=== PATIENT | male | born 1955 | race African-American/Black ===

== ENCOUNTER 2020-02-29 03:57 | Emergency (ER) | payer OTHER ==
[~2020-02-29] VITALS: Ht 177.8 cm; Wt 72.6 kg
[2020-02-29 04:00] VITALS: BP 110/74
[2020-02-29] MEDS ORDERED: LISINOPRIL2.5 MG PO (04:10)
[2020-02-29] MEDS ORDERED: GLIPIZIDE5 MG PO (04:11)
[2020-02-29] MEDS ORDERED: LIPITOR10 MG PO (04:12)
== END 2020-02-29 04:48 | disposition home or self-care (01) ==
LOC: ER 03:57
DX: F22 Delusional disorders (principal); E11.9 Type 2 diabetes mellitus without complications; Z79.899 Other long term (current) drug therapy; Z98.890 Other specified postprocedural states

== ENCOUNTER 2020-10-06 04:56 | Emergency (ER) | payer BC ==
[~2020-10-06] VITALS: Ht 177.8 cm; Wt 72.6 kg
[~2020-10-06 04:56] MED LIST: GLIPIZIDE5 MG PO; LIPITOR10 MG PO; LISINOPRIL2.5 MG PO
[2020-10-06 05:51] VITALS: BP 122/86
== END 2020-10-06 05:51 | disposition home or self-care (01) ==
LOC: ER 04:56
DX: F22 Delusional disorders (principal); L53.9 Erythematous condition, unspecified; E11.9 Type 2 diabetes mellitus without complications; Z98.890 Other specified postprocedural states; Z79.899 Other long term (current) drug therapy

== ENCOUNTER 2021-09-18 19:05 | Inpatient (IN) | payer BC ==
[~2021-09-18] VITALS: Ht 180.3 cm; Wt 65.8 kg
[2021-09-18 19:10] VITALS: BP 136/87
[2021-09-18 20:24] LABS: BE(vivo) -1.1 mmol/L (-2 to +3); PCO2 28.1 mmHg (35.0-45.0); pH 7.491 (7.360-7.450); sO2 73.2 % (92.0-98.0)
[2021-09-18 20:25] LABS: HEMATOCRIT 39.9 % (42.0-52.0); HEMOGLOBIN 13.6 gm/dL (14.0-18.0); MCH 30.9 pg (26.0-34.0); MCHC 34.2 g/dL (28.0-37.0); MCV 90.5 fL (80.0-100.0); PLATELET COUNT 390 thou/uL (150-400); RBC 4.41 mil/uL (4.50-6.00); RDW 12.1 % (10.5-14.5); WBC 16.4 thou/uL (4.0-11.0)
[2021-09-18 20:26] LABS: PO2 34.9 mmHg (80.0-100.0)
[2021-09-18 21:06] LABS: URINE BILIRUBIN NEGATIVE (Negative); URINE BLOOD NEGATIVE (Negative); URINE CLARITY CLEAR; URINE GLUCOSE-RANDOM* 3+ (Negative); URINE KETONES 3+ (Negative); URINE LEUKOCYTES-REFLEX NEGATIVE (Negative); URINE NITRITE-REFLEX NEGATIVE (Negative); URINE PROTEIN (DIPSTICK) TRACE (Negative)
[2021-09-18 21:17] LABS: URINE COLOR YELLOWF
[2021-09-18 21:25] LABS: ALBUMIN 2.4 g/dL (3.4-5.0); CALCIUM 8.8 mg/dL (8.5-10.1); CREATININE 0.9 mg/dL (0.7-1.3); MAGNESIUM 1.8 mg/dL (1.8-2.4); TOTAL BILIRUBIN 0.8 mg/dL (0.2-1.0); TOTAL PROTEIN 7.9 g/dL (6.4-8.2)
[2021-09-18 21:30] LABS: POTASSIUM 5.4 mmol/L (3.5-5.1)
[2021-09-18 21:40] LABS: AMP/METHAMP Negative (Negative); BARBITURATES Negative (Negative); BENZODIAZEPINES Negative (Negative); COCAINE Negative (Negative); METHADONE Negative (Negative); OPIATES Negative (Negative); PCP Negative (Negative)
[2021-09-18 22:16] LABS: ABSOLUTE NEUTROPHILS 13.1 thou/uL (1.4-8.2)
[2021-09-18 22:40] VITALS: BP 136/88
[2021-09-18 23:30] VITALS: BP 136/81
[2021-09-19 02:27] LABS: HEMATOCRIT 35.7 % (42.0-52.0); HEMOGLOBIN 12.2 gm/dL (14.0-18.0); MCH 30.8 pg (26.0-34.0); MCV 90.5 fL (80.0-100.0); RBC 3.95 mil/uL (4.50-6.00); RDW 12.2 % (10.5-14.5); WBC 16.5 thou/uL (4.0-11.0)
[2021-09-19 02:35] LABS: CREATININE 0.8 mg/dL (0.7-1.3); POTASSIUM 4.5 mmol/L (3.5-5.1)
[2021-09-19 02:39] LABS: ALBUMIN 2.2 g/dL (3.4-5.0); PHOSPHORUS 3.2 mg/dL (2.6-4.7)
[2021-09-19 02:42] LABS: ALBUMIN 2.2 g/dL (3.4-5.0); CALCIUM 8.1 mg/dL (8.5-10.1); CREATININE 0.9 mg/dL (0.7-1.3); TOTAL BILIRUBIN 0.6 mg/dL (0.2-1.0); TOTAL PROTEIN 7.1 g/dL (6.4-8.2)
[2021-09-19 02:47] LABS: POTASSIUM 4.3 mmol/L (3.5-5.1)
[2021-09-19 03:53] LABS: BE(vivo) 1.3 mmol/L (-2 to +3); HCO3 24.8 mmol/L (22.0-26.0); PCO2 35.5 mmHg (35.0-45.0); PO2 62.6 mmHg (80.0-100.0); pH 7.462 (7.360-7.450); sO2 93.3 % (92.0-98.0)
[2021-09-19 04:25] VITALS: BP 128/75
--- NOTE | 2021-09-19 07:14 | EKG ---
[address] [address] ELECTROCARDIOGRAM REPORT Name: SORAYA DEAN Room #: 361-P ADM IN M.R.#: [id number] Admission: 09/18/21 Attend Phys: George Juarez MD Discharge: Date of : 59 Report #: [id number] [facility] ED Test Date: 2021-09-18 Test Time: 20:29:06 Pat Name: SORYAA DEAN Department: Room: 361 Gender: M Animal Care Technician: shannen : 1955 Requested By: Rod Ramírez Order Number: [id number] MD: Allan Elizalde Measurements Intervals Convoy Rate: 97 P: 15 WV: 154 QRS: 52 QRSD: 74 T: 25 QT: 350 QTc: 445 Interpretive Statements Sinus rhythm No previous ECG available for comparison Electronically Signed On 09-19-2021 7:14:36 [employer] by Allan Elizalde [email or web address] <ELECTRONICALLY SIGNED> By: Allan Elizalde MD, [facility] 09/19/21713 28 28 Allan Elizalde MD, FACC /EPI
[2021-09-19 08:05] VITALS: BP 133/83
--- NOTE | 2021-09-19 09:09 | NUR ---
PT ADMITTED TO 3W FROM ER FROM HOME. STATED HE HAD BEEN HOME FOR SEVERAL DAYS WITH POOR APPETITE AND COVID SYMPTOMS. HE WAS NOT TAKING HIS INSULIN, WAS LETHARGIC AND DROWSY. BG FOUND TO BE ELEVATED IN ER. PT ADMITTED FOR COVID+, SEPSIS AND PNEUMONIA. HE WAS ADMIITED TO 3W FROM ER ON 6LNC. HE HAS SINCE THEN OVERNIGHT BEEN TITRATED TO 90% FIO2 ON OPTIFLOW WITH 45LF. ABGS CALLED TO [facility]. PULMONARY AND ID CONSULTS PENDING. BG HAS BEEN TREATED AND HAS COME DOWN INTO 200s. PT BECAME AGITATED AND RESTLESS AND HAS PULLED OUT IV, URINATED ALL OVER BED AND FLOOR, AND PULLED OFF OPTIFLOW AT LEAST 4 TIMES. [facility] NOTIFIED. BARKSDALE PLACED AND SOFT WRIST RESTRAINTS APPLIED. NO PAIN MEDS OR ANTI ANXIETY MEDS GIVEN DUE TO RESPIRATORY STATUS. WAITING FOR CT OF HEAD TO BE DONE THIS AM. PT ON ISOLATION FOR COVID+ AND CONTACT FOR RECENT TX OF SCABIES ACCORDING TO PT'S . LR INFUSING AT 126 AND IV ABX STARTED ORDERED. SR ON MONITOR. CAREPLAN INITIATED. SPOKE WITH PT'S 3 X TONIGHT AND EXPLAINED POC. SHE IS NOT AWARE OF ALL OF HIS MEDICATIONS OR PMHX. UNABLE TO COMPLETE MED RECONCILIATION COMPLETELY.
[2021-09-19 10:46] LABS: BE(vivo) -2.7 mmol/L (-2 to +3); HCO3 20.6 mmol/L (22.0-26.0); PCO2 30.9 mmHg (35.0-45.0); pH 7.441 (7.360-7.450); sO2 90.1 % (92.0-98.0)
[2021-09-19 10:47] LABS: PO2 54.9 mmHg (80.0-100.0)
[2021-09-19 11:23] VITALS: BP 133/88
[2021-09-19 15:05] VITALS: BP 125/82
[2021-09-19 19:49] VITALS: BP 118/57
[2021-09-20 04:13] VITALS: BP 126/82
[2021-09-20 07:39] VITALS: BP 129/82
[2021-09-20 08:52] LABS: HEMATOCRIT 30.3 % (42.0-52.0); HEMOGLOBIN 10.3 gm/dL (14.0-18.0); MCH 30.7 pg (26.0-34.0); MCHC 33.9 g/dL (28.0-37.0); MCV 90.6 fL (80.0-100.0); PLATELET COUNT 312 thou/uL (150-400); RBC 3.35 mil/uL (4.50-6.00); RDW 12.1 % (10.5-14.5); WBC 17.2 thou/uL (4.0-11.0)
[2021-09-20 09:18] LABS: ALBUMIN 1.8 g/dL (3.4-5.0); CALCIUM 7.8 mg/dL (8.5-10.1); CREATININE 0.8 mg/dL (0.7-1.3); DIRECT BILIRUBIN 0.2 mg/dL (<0.1-0.2); PHOSPHORUS 2.7 mg/dL (2.5-4.9); POTASSIUM 4.2 mmol/L (3.5-5.1); TOTAL BILIRUBIN 0.6 mg/dL (0.2-1.0); TOTAL PROTEIN 5.9 g/dL (6.4-8.2)
[2021-09-20 09:20] LABS: D-DIMER 11.63 ug/mLFEU (0.19-0.50); INR 1.14; PROTIME 12.4 Seconds (10.5-12.1)
[2021-09-20 11:29] VITALS: BP 112/70
[2021-09-20 12:48] LABS: ABSOLUTE NEUTROPHILS 15.5 thou/uL (1.4-8.2); ANISOCYTOSIS SLIGHT; ATYPICAL LYMPHS 1 %
[2021-09-20 12:49] LABS: POIKILOCYTOSIS SLIGHT
[2021-09-20 15:16] VITALS: BP 105/66
--- NOTE | 2021-09-20 18:50 | NUR ---
RN ASSUMED PT'S CARE AT 0700AM, PT IS A&OX4 , PT IS ON OPTIFLOW O2 100%, 60L /MIN WITH MASK O2 1OL/MIN TO KEEP PT'S O2SAT AT 91-95%,RN HAS NOTIFIED HOSPITAL DR AND DR FULLER ABOUT PT REFUSED BIPAP , RN HAS NOTIFIED PT'S FAMILY ABOUT PT'S REFUSIN , PT'S CODE STATUS HAS CHANGED TO FULL CODE ,BUT NO INTUTRBATION , RN WILL REPORT TO NEXT SHIFT TO KEEP EYE ONPT.
[2021-09-20 19:31] VITALS: BP 153/87
[2021-09-20 23:25] VITALS: BP 134/90
--- NOTE | 2021-09-20 23:48 | HC ---
[facility] [place] [address] CONSULTATION Name: SORAYA DEAN Room #: 361- ADM IN M.R.#: [id number] Admission: 09/18/21 Attend Phys: Song Andrea MD Discharge: Date of : 59 Report #: [id number] THIS REPORT FOR: cc: Blake Anglin Sr, MD, Otis S Sr MD Geha, Daniel J. MD ~ DATE OF SERVICE: 09/19/2021 INFECTIOUS DISEASE CONSULTATION REASON FOR CONSULTATION: I was asked to evaluate concerning COVID-19 pneumonia. HISTORY OF PRESENT ILLNESS: The patient is a 66-year-old diabetic who presents with altered mental status and hyperglycemia. Presented through the Emergency Room. He has been encephalopathic. Lethargy started the day of admission. He was unable to give much history. When he presented, he was on 6 liters of oxygen per nasal cannula. Subsequently, he has been placed on high flow oxygen up to 100%. He remains awake, but difficult to converse with. He could not give me a specific timeframe of his illness. He was stating that it has been over a year. He was alert, but again confused. REVIEW OF SYSTEMS: As noted from nursing staff and previous records, noting no chest pain, no hemoptysis. No nausea, vomiting or diarrhea. He has been incontinent of urine. ALLERGIES: None known. MEDICATIONS: As noted on his MAR, which were reviewed. Reportedly, on lisinopril, glipizide, and atorvastatin prior to his admission. PAST MEDICAL HISTORY: Diabetes. He has had a patellar surgery on both knees. He has sciatica, chronic pain syndrome, vertigo, delusional, parasitosis. FAMILY HISTORY: Not available. SOCIAL HISTORY: Unclear if he has been a smoker, any significant alcohol or drug use. PHYSICAL EXAMINATION: GENERAL: He was afebrile and hemodynamically stable. He was alert and cooperative. SKIN: Without rash or decubitus. No palpable adenopathy. He was very thin. HEENT: Eyes without scleral icterus. Mouth without mucositis. NECK: Supple with no thyromegaly or mass. LUNGS: Few posterior crackles, without consolidation. HEART: Regular, without murmur. [facility] [address] [place] [address] CONSULTATION Name: SORAYA DEAN Room #: 361-[facility] IN ..#: [id number] Admission: 09/18/21 Attend Phys: Song Andrea MD Discharge: Date of : 59 Report #: [id number] ABDOMEN: Soft and nontender with no hepatosplenomegaly or mass. EXTREMITIES: He had no peripheral edema. NEUROLOGIC: Cranial nerves were intact and he was able to move all extremities, symmetrically. Mood calm without evidence of anxiety. Confusion. LABORATORY DATA: Reviewed. MICROBIOLOGY: Reviewed. IMAGING: Chest x-ray reviewed. IMPRESSION: 1. A 66-year-old diabetic, presents with acute toxic metabolic encephalopathy, uncontrolled diabetes, COVID-19 pneumonia with respiratory failure and severe acute respiratory syndrome. 2. Chronic back pain. 3. History of paranoia. 4. Delusional parasitosis. RECOMMENDATION: We will continue with anti-inflammatory medication including steroids and IL-6 inhibitor, remdesivir and antibiotics, pending culture results. Serial laboratory studies. Monitor blood glucose. The patient will be considered for transfer to intensive care unit for closer monitoring as the patient is on high flow oxygen and has altered mental status. <ELECTRONICALLY SIGNED> By: Johnathon Stearns MD 09/20/21 [id number] Johnathon Stearns MD /nt
[2021-09-21 04:22] VITALS: BP 135/88
--- NOTE | 2021-09-21 04:36 | NUR ---
PT MAKING POOR PROGRESS TOWARDS GOALS. ON OPTIFLO AT 60L AND 100% FIO2 AND NON-REBREATHER MASK. LUNGS DIMINISHED IN BOTH UPPER LOBES AND COARSE IN BOTH LOWER LOBES. RT ATTEMPTED TO PLACE BIPAP LAST NIGHT PT WAS INITIALLY WILLING TO WEAR. UNFORTUNATELY PT REMOVED THE MASK, POSSIBLLY WHILE ASLEEP JUST 25 MINUTES LATER AND THEN REFUSED TO PUT IT BACK ON. OPTIFLO WAS RESUMED AT THAT MOMENT. AT REST AND WHILE AWAKE PT O2 SAT 89-93%. DOES DESAT TO MID 80'S WITH MINIMAL MOVEMENT. DID NOTICE THAT PT O2 SAT DROPPED FROM 90% TO 80% WITHIN A MINUTE OF CONVERSATION. PT WAS WITNESSED "PANTING", MOUTH BREATHING AFTER THAT. HE DENIED THAT HE FELT SOA DESPITE THE MANNER OF HIS BREATHING. DISCUSSED USE OF BIPAP WITH PT THIS AM WHEN HE WAS FOUND WITH HIS OPTIFLO OFF, AND TRYING TO GET SOMETHING TO DRINK. STAFF REPORTED THAT HIS O2 SAT WAS 78% AND HE ONLY HAD THE NON-REBREATHER MASK IN PLACE. REPLACED OPTIFLO CANNULA AND WITHIN 4-5 MINUTES O2 SAT WAS BETWEEN 86-88%. AFTER THAT PROCEEDED WITH THE DISCUSSION OF USING BIPAP. DISCUSSED POSSIBLE USE OF MEDICATION TO HELP PT TO BE ABLE TO RELAX WHILE WEARING THE BIPAP MASK BUT PT REFUSED. REMINDED PT THAT HE HAD PREVIOUSLY CHOSEN TO BE A FULL CODE BUT NO INTUBATION WHEN PT STATED "I DON'T UNDERSTAND WHY YOU WANT ME TO WEAR THAT MASK." DESPITE INFORMING PT OF THE ASSISTANCE A BIPAP MASK WOULD GIVE HE STILL REFUSED ANY MEDICATION AND TO WEAR IT. "MAYBE AFTER BREAKFAST." PT A&0 X4. ACCURATE ANSWERS GIVEN ON NAME, DATE, LOCATION AND THAT HE IS HERE DX WITH COVID PNA. PT WHILE AT REST HAD O2 SATS 87-89% UPON LEAVING THE ROOM.
[2021-09-21 05:13] LABS: HEMATOCRIT 32.1 % (42.0-52.0); HEMOGLOBIN 10.9 gm/dL (14.0-18.0); MCH 30.6 pg (26.0-34.0); MCHC 33.9 g/dL (28.0-37.0); MCV 90.3 fL (80.0-100.0); PLATELET COUNT 362 thou/uL (150-400); RBC 3.55 mil/uL (4.50-6.00); RDW 12.3 % (10.5-14.5); WBC 19.7 thou/uL (4.0-11.0)
[2021-09-21 05:16] LABS: ALBUMIN 1.9 g/dL (3.4-5.0); CREATININE 0.8 mg/dL (0.7-1.3); DIRECT BILIRUBIN 0.2 mg/dL (<0.1-0.2); PHOSPHORUS 2.5 mg/dL (2.5-4.9); POTASSIUM 3.4 mmol/L (3.5-5.1); TOTAL BILIRUBIN 0.6 mg/dL (0.2-1.0); TOTAL PROTEIN 5.9 g/dL (6.4-8.2)
[2021-09-21 07:34] VITALS: BP 118/73
[2021-09-21 08:09] LABS: ABSOLUTE NEUTROPHILS 17.3 thou/uL (1.4-8.2); ANISOCYTOSIS SLIGHT; MYELOCYTES 2 %
[2021-09-21 08:10] LABS: POIKILOCYTOSIS SLIGHT
[2021-09-21 11:35] VITALS: BP 133/89
--- NOTE | 2021-09-21 15:26 | NUR ---
INITIAL ASSESSMENT: Received consult for discharge planning. SW reviewed chart and spoke with nursing and attending physician. Pt was admitted from home due to COVID pneumonia. Pt placed in Enhanced Isolation. Pt has not received a COVID vaccination. Pt is afebrile and on optiflow. Pt is on IV meds and Remdesivir. SW spoke briefly with pt via phone. Introduced role of SW. Pt is alert/orientated x 4. Pt reports he lives at home with his family. Prior to admission, pt was independent with ADLs. No use of DME. Pt is employed. Pt's PCP is Dr. Blake Anglin. Therapy on hold due to O2 needs. SW is following to assist as needed with discharge planning.
--- NOTE | 2021-09-21 15:59 | NUR ---
assumed care of pt at 0700. pt alert and oriented, maintaining spo2 on NRB whiled maxed on optiflow. iv abx infusing per order. complains of foot pain - some relief with tylenol. no events on telemetry. no progress toward poc goals.
[2021-09-21 16:41] VITALS: BP 116/79
[2021-09-21 19:41] VITALS: BP 155/80
--- NOTE | 2021-09-22 02:14 | NUR ---
PT WITH OXYGEN VIA OPTIFLO AT 60L AND 100% FIO2. PT SUPPLEMENTING WITH NRB MASK (15L). FREQUENT LOW SPO2 ALARMS AT LESS THAN 85%. NOTED THAT PT DID NOT EAT ANY DINNER AND HAS APPEARED TIRED AND MUCH LESS INTERACTIVE THAN HE WAS THE PREVIOUS NIGHT. A&O X4 DESPITE APPEARING LIKE THIS. DID DISCUSS WITH PT THAT IT WAS THIS RN'S OBSERVATION THAT HE IS 'RUNNING OUT OF STRENGTH AND ENERGY TO BREATH. YOUR LESS ACTIVE THAN YOU WERE LAST NIGHT, YOU DIDN'T EAT DINNER AND YOU'VE HARDLY DRANK ANYTHING TONIGHT.' ENCOURAGED STRONGLY, TO LET STAFF PLACE PT ON BIPAP. PT THEN STATED "CAN YOU GIVE ME THAT SHOT YOU TALKED ABOUT LAST NIGHT?" IM OLANZAPINE NOT PRESENT ON THE NOV. ORDER OBTAINED FOR PO DOSE OF ZYPREXA RECEIVED FROM INSECT CONTROL AIDE. DOSE GIVEN AND BIPAP PLACED BY RT. O2 SATS INOCENTE TO 92-93% WITH FIO2 AT 100%. WILL CONTINUE TO MONITOR.
[2021-09-22 03:52] VITALS: BP 112/77
[2021-09-22 04:01] LABS: CALCIUM 7.9 mg/dL (8.5-10.1); CREATININE 0.7 mg/dL (0.7-1.3); DIRECT BILIRUBIN 0.2 mg/dL (<0.1-0.2); PHOSPHORUS 2.8 mg/dL (2.5-4.9); POTASSIUM 3.9 mmol/L (3.5-5.1); TOTAL BILIRUBIN 0.6 mg/dL (0.2-1.0); TOTAL PROTEIN 5.6 g/dL (6.4-8.2)
[2021-09-22 07:43] VITALS: BP 131/78
[2021-09-22 11:26] VITALS: BP 111/68
--- NOTE | 2021-09-22 13:21 | NUR ---
SW reviewed chart and spoke with nursing and attending physician. Pt remains in Enhanced Isolation due to COVID. Pt is afebrile and on optiflow. Pt has been placed on bipap support. Pt is on IV meds and Remdesivir. Therapy on hold at this time. Per chart, pt has refused transfer to ICU. No weekend discharge planned. ABRAHAM is following to assist as needed with discharge planning.
[2021-09-22 16:04] VITALS: BP 136/84
--- NOTE | 2021-09-22 18:13 | NUR ---
PATIENT A/O X4. ON 60L/100% OPTIFLOW WHEN EATTING NOT TOLERATED WELL. ALSO ON 100% BIPAP. PATIENT DOES NOT WANT TARNSFERED TO ICU ON PRECEDEX GTT. PATIRNT IS NO INTUBATION CODE. NOT TOWARDS POC GOALS.
[2021-09-22 20:20] VITALS: BP 135/73
[2021-09-23 04:38] LABS: CALCIUM 8.2 mg/dL (8.5-10.1); CREATININE 0.7 mg/dL (0.7-1.3); DIRECT BILIRUBIN 0.2 mg/dL (<0.1-0.2); PHOSPHORUS 3.5 mg/dL (2.5-4.9); POTASSIUM 4.3 mmol/L (3.5-5.1); TOTAL BILIRUBIN 0.5 mg/dL (0.2-1.0); TOTAL PROTEIN 5.5 g/dL (6.4-8.2)
[2021-09-23 04:46] VITALS: BP 119/73
[2021-09-23 06:07] LABS: HIV ANTIBODY Non Reactive (Non Reactive)
[2021-09-23 07:54] VITALS: BP 116/69
[2021-09-23 11:38] VITALS: BP 112/70
[2021-09-23 15:00] VITALS: BP 108/64
[2021-09-23 19:24] VITALS: BP 95/50
--- NOTE | 2021-09-24 03:42 | NUR ---
continues on optiflo at 100 %, 60 liters. family member dropped off his computer and snacks. He needs encouraging to turn himself in the bed. he is able to turn and pull himself up with encouragement. denies pain. he has been relaxed and able to rest tonight. adequate urine output.
[2021-09-24 04:16] VITALS: BP 105/69
--- NOTE | 2021-09-24 05:06 | NUR ---
PY SITTING ON BSC, HE IS CONSTIPATEDAND FEELING VERY FULL. HE HAS NOT HAD MUCH TO EAT, BUT HAS NOT HAD A GOOD BM IN DAYS/ PER PT REPORT
[2021-09-24 05:54] LABS: CALCIUM 8.2 mg/dL (8.5-10.1); CREATININE 0.8 mg/dL (0.7-1.3); DIRECT BILIRUBIN 0.2 mg/dL (<0.1-0.2); PHOSPHORUS 3.1 mg/dL (2.5-4.9); POTASSIUM 3.9 mmol/L (3.5-5.1); TOTAL BILIRUBIN 0.5 mg/dL (0.2-1.0); TOTAL PROTEIN 5.8 g/dL (6.4-8.2)
[2021-09-24 07:22] VITALS: BP 104/70
[2021-09-24 11:29] VITALS: BP 94/57
--- NOTE | 2021-09-24 13:36 | NUR ---
PT HAS NOT BEEN MEDICALLY ABLE TO PARTICIIPATE IN OT EVAL. PLEASE REORDER OT WHEN PT HAS MEDICALLY IMPROVED AND CAN PARTICIPATE. D/C CURRENT OT ORDERS
[2021-09-24 15:20] LABS: T-SPOT.TB Negative
[2021-09-24 15:45] VITALS: BP 98/66
[2021-09-24 19:03] VITALS: BP 104/65
[2021-09-25 04:54] LABS: ALBUMIN 2.1 g/dL (3.4-5.0); CALCIUM 8.2 mg/dL (8.5-10.1); CREATININE 0.9 mg/dL (0.7-1.3); DIRECT BILIRUBIN 0.1 mg/dL (<0.1-0.2); PHOSPHORUS 3.8 mg/dL (2.5-4.9); POTASSIUM 4.2 mmol/L (3.5-5.1); TOTAL BILIRUBIN 0.3 mg/dL (0.2-1.0); TOTAL PROTEIN 5.7 g/dL (6.4-8.2)
--- NOTE | 2021-09-25 05:18 | NUR ---
Pt. has slept fair during the night with Optiflow 60L/100%. Occasionally takes off O2 then desat easily ,for the most part he kept it on. Cont. on enhanced precaution,afebrile.
[2021-09-25 08:18] VITALS: BP 125/68
[2021-09-25 11:58] VITALS: BP 106/73
[2021-09-25 15:34] VITALS: BP 113/58
--- NOTE | 2021-09-25 18:38 | NUR ---
PATIENT SUGAR WAS 404 TALKED TO DOCTOR SHYAM AND ALL SHE WANTED WAS SUGAR RECHECKED LATER WAS RECHECK. TALKED WITH PATIENTS FAMILY ABOUT BRING FOOD TO HIM, ALSO TALKED TO PATIENT ABOUT HAVING THE FOOD BROUGHT IN AND WITH HIS SUGAR HI MIGHT NOT BE ABLE TO EAT THE FOOD. PATIENT BARKSDALE WAS LEAKING AND BOLLOON WAS CHECK AND WAS FUSHED IN SOME, NO MORE LEAK NOTED. PATIENT IS RESTING IN BED WITH CALL ESPOSITO IN REACH.
[2021-09-25 20:28] VITALS: BP 123/86
[2021-09-26 04:00] VITALS: BP 102/67
--- NOTE | 2021-09-26 05:02 | NUR ---
PROGRESS PT A/O X4 BUT FORGETFUL REMOVES OPTIFLOW AT TIMES AND DESATS INTO THE 70'S. ADVISED PT TO NOT REMOVE O2 HE STATED HE WOULD TRY NOT TO. VSS. ACCUCHECK 449 AT [facility] NOTIFIED AND 20 UNITS SSI ADMINISTERED PER PROTOCOL. C/O PAIN TO PENIS STATES BARKSDALE CATHETER IS HURTING HIM, ORDER OBTAINED TO DC AND BARKSDALE CATH DC'D WITH STATED RELIEF. RF SALINE LOCK FLUSHES WITHOUT DIFFICULTY. SCD'S IN PLACE TELEMETRY INTACT READING SR/ST WITH RATES IN THE LOW 100'S. CONTINUE POC.
[2021-09-26 06:52] LABS: ALBUMIN 2.2 g/dL (3.4-5.0); CALCIUM 8.4 mg/dL (8.5-10.1); CREATININE 0.7 mg/dL (0.7-1.3); DIRECT BILIRUBIN 0.1 mg/dL (<0.1-0.2); PHOSPHORUS 4.4 mg/dL (2.5-4.9); POTASSIUM 3.6 mmol/L (3.5-5.1); TOTAL BILIRUBIN 0.4 mg/dL (0.2-1.0); TOTAL PROTEIN 5.9 g/dL (6.4-8.2)
[2021-09-26 07:40] VITALS: BP 88/60
--- NOTE | 2021-09-26 07:41 | NUR ---
ORDERS FOR EVAL AND TREAT BUT Pt HAS CONTINUED WITH HIGH O2 REQUIREMENTS AND HAS NOT BEEN APPROPRIATE FOR THERAPY FOR PAST WEEK. WILL PLACE ON HOLD AT THIS TIME AND AWAIT NEW ORDERS TO INITIATE THERAPY WHEN APPROPRIATE
[2021-09-26 11:34] VITALS: BP 125/70
--- NOTE | 2021-09-26 14:01 | NUR ---
SW reviewed chat and spoke with nursing and attending physician. Pt remains in Enhanced Isolation due to COVID. Pt is afebrile and requiring optiflow. Pt is on IV meds and Remdesivir. Pt's code status changed to Full Code. Pt now agreeable with intubation if needed, but does not want a trach/peg if unable to come off the vent. Therapy evals on hold at this time due to pt's O2 demands. ABRAHAM is following to assist as needed with discharge planning.
[2021-09-26 15:25] VITALS: BP 111/70
[2021-09-26 19:29] VITALS: BP 111/65
--- NOTE | 2021-09-26 19:51 | NUR ---
PT PROGRESSING ON PLAN OF CARE WITH IMPROVEMENT OF REPORTED RESPIRATORY SYMPTOMS, STILL REQUIRING OPTIFLOW. PT ABLE TO GET TO CHAIR TODAY WITH LESS SOB.
--- NOTE | 2021-09-26 23:49 | NUR ---
PT LEANING TO R SIDE IN SEMI FOWLERS POSITION IN BED. OPTI PATRICIO INTACT, CONTINUOUS PULSE OX INTACT. LUNGS WITH CRACKLES. PT TALKING ON PHONE LOUDLY. PT REQUESTING AND EATING SNACKS. PROVIDER NOTIFIED OF FSBS DUE TO PARAMETERS. BED ALARM ON. PT EXPRESSED BEING HAPPY THAT HIS BARKSDALE IS DISCONTINUED.
[2021-09-27 04:20] VITALS: BP 108/72
[2021-09-27 04:50] LABS: ALBUMIN 2.4 g/dL (3.4-5.0); ANION GAP 10 mmol/L (7-16); BUN 23 mg/dL (7-18); CALCIUM 8.5 mg/dL (8.5-10.1); CHLORIDE 101 mmol/L (98-107); CO2 27 mmol/L (21-32); CREATININE 0.6 mg/dL (0.7-1.3); DIRECT BILIRUBIN < 0.1 mg/dL (<0.1-0.2); GLUCOSE 261 mg/dL (74-106); PHOSPHORUS 3.8 mg/dL (2.5-4.9); POTASSIUM 3.7 mmol/L (3.5-5.1); SGOT 31 U/L (15-37); SGPT 84 U/L (30-65); SODIUM 138 mmol/L (136-145); TOTAL BILIRUBIN 0.3 mg/dL (0.2-1.0); TOTAL PROTEIN 6.1 g/dL (6.4-8.2)
[2021-09-27 05:09] LABS: HEMOGLOBIN 10.8 gm/dL (14.0-18.0)
[2021-09-27 05:12] LABS: HEMATOCRIT 31.7 % (42.0-52.0); MCH 30.9 pg (26.0-34.0); MCHC 33.9 g/dL (28.0-37.0); MCV 91.2 fL (80.0-100.0); PLATELET COUNT 283 thou/uL (150-400); RBC 3.48 mil/uL (4.50-6.00); RDW 13.1 % (10.5-14.5); WBC 27.2 thou/uL (4.0-11.0)
[2021-09-27 07:35] VITALS: BP 98/68
[2021-09-27 08:29] LABS: ABSOLUTE NEUTROPHILS 24.2 thou/uL (1.4-8.2)
[2021-09-27 11:20] VITALS: BP 110/73
[2021-09-27 15:29] VITALS: BP 127/72
--- NOTE | 2021-09-27 15:58 | NUR ---
SW reviewed chart and spoke with nursing and attending physician. Pt remains in Enhanced Isolation due to COVID. Pt is afebrile and requiring optiflow. Pt is IV meds and Remdesivir. Pt unable to work with therapy at this time due to O2 needs. ABRAHAM is following to assist as needed with discharge planning.
[2021-09-27] MEDS ORDERED: JANUMET 50-1,01 EACH PO (16:34)
[2021-09-27 19:06] VITALS: BP 101/64
[2021-09-28 03:42] VITALS: BP 100/62
--- NOTE | 2021-09-28 03:45 | NUR ---
ASSUMED PT CARE AT 1900. PT ALERT & ORIENTED X 4, IS CALM AND COOPERATIVE. CURRENTLY USING THE OPTIFLOW & IT IS SET AT 40L 60% FIO2. O2 SATS 94-99%. PT HAS SOB WITH EXERTION. PT IS VOIDING AT THE BEDSIDE USING URINAL AND IS HAVING ADEQUATE OUTPUT. VSS AFEBRILE. PT IS ABLE TO MAKE NEEDS KNOWN AND ALL NEEDS ARE MET AT THIS TIME. CONTINUE WITH PLAN OF CARE.
[2021-09-28 07:49] LABS: HEMATOCRIT 30.7 % (42.0-52.0); HEMOGLOBIN 10.4 gm/dL (14.0-18.0); MCH 31.2 pg (26.0-34.0); MCHC 33.7 g/dL (28.0-37.0); MCV 92.6 fL (80.0-100.0); RBC 3.32 mil/uL (4.50-6.00); RDW 13.3 % (10.5-14.5); WBC 21.5 thou/uL (4.0-11.0)
[2021-09-28 07:50] VITALS: BP 104/53
[2021-09-28 08:00] LABS: ALBUMIN 2.2 g/dL (3.4-5.0); ANION GAP 8 mmol/L (7-16); BUN 22 mg/dL (7-18); CALCIUM 8.2 mg/dL (8.5-10.1); CHLORIDE 103 mmol/L (98-107); CO2 28 mmol/L (21-32); CREATININE 0.7 mg/dL (0.7-1.3); DIRECT BILIRUBIN < 0.1 mg/dL (<0.1-0.2); GLUCOSE 215 mg/dL (74-106); PHOSPHORUS 3.6 mg/dL (2.5-4.9); POTASSIUM 3.7 mmol/L (3.5-5.1); SGOT 25 U/L (15-37); SGPT 63 U/L (30-65); SODIUM 139 mmol/L (136-145); TOTAL BILIRUBIN 0.3 mg/dL (0.2-1.0); TOTAL PROTEIN 5.6 g/dL (6.4-8.2)
[2021-09-28 11:36] VITALS: BP 94/54
--- NOTE | 2021-09-28 13:58 | NUR ---
SW reviewed chart and spoke with nursing and attending physician. Pt remains in Enhanced Isolation due to COVID. Pt is afebrile and on optiflow. Pt is on IV steroids and Remdesivir. PT eval completed today. SW spoke with pt via phone. Pt states he is feeling better today. SW discussed that SW will follow along and assist with discharge planning. Pt states his son at [facility] earlier this year and wanted to find out information regarding his son's . Pt also requesting medical records of his two prior ER visits on Oct 06, 2020 and February 29, 2020. Both ER visits were related to delusions of parasitosis. SW explained that he will need to sign a release of info and have form sent to Medical Records, in order to have his medical records provided to him. Pt does not know his son's to assist with verifying pt's son's . Pt states his son has the same name. ABRAHAM explained to pt that info regarding his son's may not be able to be released to him, if info is able to be retrieved. ABRAHAM to discuss with Director of Case Mgmt and Risk Mgmt. Pt appreciative for info. Plan is for pt to discharge home when medically stable. SW is following to assist as needed with discharge planning.
[2021-09-28 15:43] VITALS: BP 95/69
--- NOTE | 2021-09-28 19:29 | NUR ---
RN ASSUMED PT'S CARE AT 0700-1900PM, PT IS A&OX4, PT IS CONTINUING OPTIFLOW O2 50-60%, 40L/MIN, PT'S O2SAT STAY AY 92-96%, BUT PT STILL HAS SOB WITH ACTIVITIES, PT'S WEAKNESS HAS IMPROVED, PT GETS UP TO CHAIR WITH ASSIST, PT 'S VS ARE STABLE AT DAY SHIFT.
[2021-09-28 21:00] VITALS: BP 119/73
--- NOTE | 2021-09-29 03:31 | NUR ---
ASSUMED PT CARE AT 1900. PT ON OPTIFLOW 40L 60% FIO2. PT DESATS QUICKLY WITH EXERTION. PT HAD NO C/O OF PAIN, NAUSEA/VOMITTING. VSS AFEBRILE. PT IS SR/ST ON TELE MONITOR. PT IS ABLE TO MAKE NEEDS KNOWN. PT SLOWLY PROGRESSING TOWARDS POC GOALS. CONTINUE WITH PLAN OF CARE.
[2021-09-29 04:17] VITALS: BP 114/67
[2021-09-29 07:41] VITALS: BP 102/61
[2021-09-29 11:40] VITALS: BP 109/60
--- NOTE | 2021-09-29 12:17 | NUR ---
ABRAHAM reviewed chart and spoke with nursing and attending physician. Pt remains in Enhanced Isolation due to COVID. Pt is afebrile and on optiflow. Pt is on IV steroids. No weekend discharge planned. Therapy is ordered. ABRAHAM placed call to pt's room. No answer. ABRAHAM discussed with nursing that if pt would like to obtain medical records from his previous ER visits, he would need to go through Medical Records. Pt will need to sign a ESTELLA form and form to be faxed to medical records. Pt will also need to go through Medical Records for info regarding his son. Plan is for pt to discharge home when medically stable. ABRAHAM is following to assist as needed with discharge planning.
[2021-09-29 15:25] VITALS: BP 123/84
[2021-09-30 03:53] LABS: CALCIUM 8.6 mg/dL (8.5-10.1); CREATININE 0.9 mg/dL (0.7-1.3); POTASSIUM 4.2 mmol/L (3.5-5.1)
[2021-09-30 04:37] LABS: HEMATOCRIT 30.2 % (42.0-52.0); HEMOGLOBIN 10.1 gm/dL (14.0-18.0); MCH 31.7 pg (26.0-34.0); MCHC 33.4 g/dL (28.0-37.0); MCV 94.9 fL (80.0-100.0); RBC 3.19 mil/uL (4.50-6.00); WBC 25.5 thou/uL (4.0-11.0)
--- NOTE | 2021-09-30 04:42 | NUR ---
ASSUMED PT CARE AT 1900. PT ALERT & ORIENTED X 4. CURRENTLY ON OPTIFLOW 40L 60% FIO2. O2 SATS 93-95%. SR/ST ON TELE MONITOR. PT HAS NO C/O OF PAIN, NAUSEA/VOMITITNG. VSS AFEBRILE. PT IS ABLE TO MAKE NEEDS KNOWN. CONTINUE WITH PLAN OF CARE.
[2021-09-30 05:45] VITALS: BP 120/71
[2021-09-30 07:31] VITALS: BP 106/72
[2021-09-30 16:53] VITALS: BP 107/73
[2021-09-30 19:46] VITALS: BP 107/67
[2021-10-01 02:24] VITALS: BP 101/64
[2021-10-01 08:57] VITALS: BP 110/72
[2021-10-01 11:35] VITALS: BP 104/61
[2021-10-01 15:39] VITALS: BP 102/66
[2021-10-02 03:15] VITALS: BP 114/79
[2021-10-02 06:51] LABS: HEMATOCRIT 34.5 % (42.0-52.0); HEMOGLOBIN 11.4 gm/dL (14.0-18.0); MCH 32.1 pg (26.0-34.0); MCHC 33.1 g/dL (28.0-37.0); MCV 96.7 fL (80.0-100.0); RBC 3.57 mil/uL (4.50-6.00); RDW 14.7 % (10.5-14.5); WBC 36.5 thou/uL (4.0-11.0)
[2021-10-02 07:17] VITALS: BP 126/75
[2021-10-02 07:18] LABS: CALCIUM 8.8 mg/dL (8.5-10.1); POTASSIUM 3.8 mmol/L (3.5-5.1)
--- NOTE | 2021-10-02 07:53 | NUR ---
Pt. slept intermittently during the night.O2 at 6L then RT titrated up to 9L since O2 sat in the mid 80's. When pt. is at rest and relax his O2 sat is in the upper 90's. Cont. on enhanced precaution , afebrile. Voided per urinal with periods of bladder incontince. Up to commode at times.
[2021-10-02 12:19] LABS: URINE BILIRUBIN NEGATIVE (Negative); URINE BLOOD NEGATIVE (Negative); URINE CLARITY CLEAR; URINE COLOR YELLOW; URINE GLUCOSE-RANDOM* 3+ (Negative); URINE KETONES NEGATIVE (Negative); URINE LEUKOCYTES-REFLEX NEGATIVE (Negative); URINE NITRITE-REFLEX NEGATIVE (Negative); URINE PROTEIN (DIPSTICK) NEGATIVE (Negative); URINE SPECIFIC GRAVITY 1.025 (1.005-1.035); URINE UROBILINOGEN 0.2 E.U./dl (0.2-1.0)
[2021-10-02 15:25] VITALS: BP 115/72
[2021-10-02 19:27] VITALS: BP 138/65
--- NOTE | 2021-10-02 22:20 | NUR ---
PT LAYING IN BED. NC 10L, CONTINUOUS PULSE OX INTACT. PT LAYING IN BED, SLOUCHED TO THE RIGHT, GOWN NOT COVERING HIS GENITALS, PANTS AROUND ANKLES. PT ASSISTED TO REMOVE PANTS AROUND HIS ANKLES AND GOWN TO COVER HIS GENITALS. URINALS AT BEDSIDE. PT TALKING ON THE PHONE AND EATING SNACKS, COMPLIANT WITH MEDS. PT CALLS FOR ASSIST.
[2021-10-03 03:18] VITALS: BP 116/74
[2021-10-03 07:20] VITALS: BP 117/72
[2021-10-03 11:20] VITALS: BP 112/67
[2021-10-03 15:25] VITALS: BP 114/69
--- NOTE | 2021-10-03 16:19 | NUR ---
ABRAHAM reviewed chart and spoke with nursing and attending physician. Pt remains in Enhanced Isolation due to COVID. Pt is afebrile and on 10L of O2. Pt is on IV steroids. Pt is progressing towards goals for discharge. Pt will discharge home when O2 needs are lower. ABRAHAM spoke with pt via phone to provide update and discuss discharge plan. SW explained possible need for home O2 and/or HH. Pt verbalized understanding. ABRAHAM confirmed pt's home address: [id number] [place] [phone]. He will be staying with his family after discharge. Options for DME and HH agencies provided. No preference voiced. ABRAHAM notified [facility] liaison of new referral. ABRAHAM will fax referral to [facility] tomorrow. Pt will need a rest/exercise oximetry ordered prior to discharge to determine home O2 needs. ABRAHAM is following to assist as needed with discharge planning.
[2021-10-03 19:54] VITALS: BP 127/98
--- NOTE | 2021-10-04 03:41 | NUR ---
Up in the recliner chair most of the night and slept intermittently during the night. O2 at 10L/HF with O2 sat in the mid to upper 90's. Cont. on enhanced precaution , afberile. Voiding per urinal with occasional periods of incontinence. Making some progress towards care plan goals.
[2021-10-04 04:39] VITALS: BP 130/81
[2021-10-04 05:09] LABS: CALCIUM 8.6 mg/dL (8.5-10.1); CREATININE 0.9 mg/dL (0.7-1.3); POTASSIUM 4.1 mmol/L (3.5-5.1)
[2021-10-04 06:06] LABS: HEMOGLOBIN 10.7 g/dL (13.0-17.7)
[2021-10-04 06:25] LABS: HEMATOCRIT 33.5 % (42.0-52.0); MCH 32.2 pg (26.0-34.0); MCV 97.5 fL (80.0-100.0); RBC 3.43 mil/uL (4.50-6.00); RDW 16.9 % (10.5-14.5)
[2021-10-04 07:42] VITALS: BP 117/77
[2021-10-04 11:30] VITALS: BP 123/69
--- NOTE | 2021-10-04 14:11 | NUR ---
ABRAHAM reviewed chart and spoke with nursing and attending physician. Pt remains in Enhanced Isolation due to COVID. Pt is afebrile and on 10L of O2. Pt is on IV steroids. Plan is for pt to discharge home when O2 needs are lower. [facility] is able to accept pt on service when discharged. ABRAHAM faxed Home O2 referral to [facility]. Notified [facility] liaison. ABRAHAM is following to assist as needed with discharge planning.
[2021-10-04 15:50] VITALS: BP 117/91
[2021-10-04 19:51] VITALS: BP 11/73
[2021-10-05 04:02] VITALS: BP 118/74
--- NOTE | 2021-10-05 04:47 | NUR ---
PT IS PROGRESSING TOWARD GOAL OF DISCHARGE. VSS THIS SHIFT. PT STARTED SHIFT ON 4L O2 PER NC, HAS BEEN ABLE TO TITRATE DOWN TO 3L MAINTAINING O2 SATS 94% AND UP. PT HAD 3 LARGE BM THIS SHIFT. NO OTHER C/O. WILL CONTINUE TO OBSERVE FOR CHANGES.
[2021-10-05 07:43] VITALS: BP 121/79
[2021-10-05 11:26] VITALS: BP 120/77
[2021-10-05] MEDS ORDERED: LANTUS100 UNIT/M SUBQ (12:07)
[2021-10-05] MEDS ORDERED: HUMALOG100 UNIT/1 SUBQ (12:08)
[2021-10-05] MEDS ORDERED: PREDNISONE 10 M10 M1 PO (12:10)
[2021-10-05] MEDS ORDERED: OXYGEN MISCELL (12:14)
[2021-10-05 13:11] VITALS: BP 120/77
--- NOTE | 2021-10-05 13:23 | NUR ---
DISCHARGE NOTE: ABRAHAM reviewed chart and spoke with nursing and attending physician. Pt remains in Enhanced Isolation due to COVID. Pt is afebrile. Rest/exercise oximetry completed earlier today. Pt qualifies for 2L of O2 with activity. SW spoke with pt via phone to discuss discharge plan. Recommendation made for pt to have HH and Home O2. Pt is aware and agreeable with discharge plan. ABRAHAM faxed testing and script for O2 to [facility]. Notified [facility] liaison. Portable O2 tank to be delivered. ABRAHAM faxed d/c paperwork to [facility] . Notified liaison. Contact info for and [facility] placed in pt's discharge summary. Pt states his family will be able to provide transportation home. ABRAHAM updated pt's nurse. Awaiting delivery of O2 tank. No additional SW needs identified at this time, but is available to assist should needs arise.
--- NOTE | 2021-10-05 15:29 | NUR ---
ASSUMED PATIENT CARE AT 0700. A/O X4. DEBATE EDUCATION DIVEN. CALLED PHARMACY PRESCRIPTION OF SYRINGES AND GLUCOSE METER. WILL DC TO HOME WITH HH.
== END 2021-10-05 17:13 | disposition home health service (06) | DRG 871 ==
LOC: ER 19:05 → EROBS 21:59 → 3W 21:59
PROVIDERS: Emergency Medicine; Hospitalist; Internal Medicine Pulmonary Disease; Nurse Practitioner Family; Specialist; ADMIT Hospitalist; ATTEND Hospitalist
DX: A41.89 Other specified sepsis (principal); U07.1 COVID-19; J12.82 Pneumonia due to coronavirus disease 2019; G92.8 Other toxic encephalopathy; J80 Acute respiratory distress syndrome; E87.0 Hyperosmolality and hypernatremia; E11.65 Type 2 diabetes mellitus with hyperglycemia; G89.4 Chronic pain syndrome; M54.9 Dorsalgia, unspecified; F22 Delusional disorders; E78.5 Hyperlipidemia, unspecified; M54.30 Sciatica, unspecified side; Z66 Do not resuscitate; E87.6 Hypokalemia; Z79.899 Other long term (current) drug therapy
CPT/HCPCS: 10879

== ENCOUNTER 2021-10-25 00:32 | Emergency (ER) | payer BC ==
[~2021-10-25] VITALS: Ht 177.8 cm; Wt 63.5 kg
[~2021-10-25 00:32] MED LIST changes: +HUMALOG100 UNIT/1 SUBQ; +JANUMET 50-1,01 EACH PO; +LANTUS100 UNIT/M SUBQ; +OXYGEN MISCELL; +PREDNISONE 10 M10 M1 PO
[2021-10-25 01:45] LABS: HEMATOCRIT 31.2 % (42.0-52.0); MCH 33.1 pg (26.0-34.0); MCHC 35.4 g/dL (28.0-37.0); MCV 93.6 fL (80.0-100.0); PLATELET COUNT 494 thou/uL (150-400); RBC 3.33 mil/uL (4.50-6.00)
[2021-10-25 02:08] LABS: CALCIUM 8.5 mg/dL (8.5-10.1); CREATININE 0.8 mg/dL (0.7-1.3)
[2021-10-25 02:14] LABS: TOTAL BILIRUBIN 0.3 mg/dL (0.2-1.0); TOTAL PROTEIN 6.7 g/dL (6.4-8.2)
[2021-10-25 02:47] VITALS: BP 126/72
[2021-10-25 03:00] LABS: ABSOLUTE NEUTROPHILS 9.6 thou/uL (1.4-8.2); ANISOCYTOSIS 1+; LARGE PLATELETS FEW; PLATELET ESTIMATE INCREASED; POIKILOCYTOSIS 1+
== END 2021-10-25 02:48 | disposition home or self-care (01) ==
LOC: ER 00:32
PROVIDERS: Emergency Medicine
DX: M25.572 Pain in left ankle and joints of left foot (principal); E11.9 Type 2 diabetes mellitus without complications; E78.5 Hyperlipidemia, unspecified; Z86.16 Personal history of COVID-19; Z79.4 Long term (current) use of insulin; Z79.899 Other long term (current) drug therapy